=== PATIENT | male | born 1960 | race Caucasian/White ===

== ENCOUNTER 2023-12-29 20:01 | Emergency (ER) | payer MEDICARE, SELFPAY ==
[2023-12-29 20:16] VITALS: BP 152/90; PULSE 88; RESP 16; TEMP 36.6; O2SAT 98; BMI 28.7
--- NOTE | 2023-12-29 20:25 | ED.GENADULT ---
HPI - General Adult General Chief complaint: Unspecified Complaint, Adult Stated complaint: Pain in chest from food Time Seen by Provider: 12/29/23 20:19 History of Present Illness HPI narrative: This 63-year-old male comes in reporting some steak or meat that he ate that is now stuck in his lower esophagus. He has had symptoms like this in the past and at 1 point he did receive treatment in another ER facility and was able to push the food bolus through. He does have an appointment with [place] [facility] in a week or so. Tonight he ate some meat and now is unable to swallow. Related Data Home Medications ?Medication ?Instructions ?Recorded ?Confirmed lovastatin .ROUTE 12/29/23 Allergies Allergy/AdvReac Type Severity Reaction Status Date / Time No Known Drug Allergies Allergy Verified 12/29/23 20:18 Review of Systems Status of ROS: Reports: 10 or more systems reviewed and unremarkable except as noted in History and below Narrative: Constitutional: No fevers, no weight gain or loss. Eyes: No discharge. No vision changes. HENT: No congestion, no sore throat, no ear pain. Cardiovascular: No chest pain, no palpitations. Respiratory: No shortness of breath, no wheezes, no cough. Gastrointestinal: No abdominal pain, no vomiting, no diarrhea. Genitourinary: No dysuria, no hematuria. Musculoskeletal: Normal range of motion. Skin: No rashes, no pruritis. Neurological: No dizziness, weakness, sensory change, speech change. Endo/Heme/Allergies: No bruising or bleeding. No polydipsia. Pysch: no suicidality, no anxiety, no insomnia. All other systems reviewed and are negative. PFSH PFS Social History Smoking Status: Never smoker How often do you have a drink containing alcohol: never AUDIT-C Alcohol total score: 0 Non-prescribed substance use: denies use Exam Narrative: Exam Narrative: Constitutional: Well-developed, well-nourished, no acute distress. HEENT: Normocephalic, atraumatic. Neck: Normal range of motion. Nontender. Supple. Heart: Intact distal pulses. Lungs: No chest discomfort. No wheezes, rhonchi, or rales. Abdomen: Nontender. Back: Normal range of motion. Extremities: Normal range of motion. No injury. Skin: Intact. No rash. Warm. No erythema or pallor. Neurologic: No altered sensation. No weakness. Alert and oriented. Psychiatric: No suicidality. No anxiety or depression. No insomnia. Nursing notes and vitals signs are reviewed. Const: Vital Signs, click to edit/add: Vital Signs - 24 hr 12/29/23 20:16 12/29/23 20:26 12/29/23 20:31 Temperature 97.8 F Pulse Rate [Pulse Oximeter] 88 81 76 Respiratory Rate 16 16 16 Blood Pressure [Ri ght Upper Arm] 152/90 H 155/86 H 148/96 H Pulse Oximetry 98 97 97 Oxygen Delivery Me thod Room Air Room Air Room Air Course Vital Signs Vital signs: Initial Vital Signs Temperature 97.8 F 12/29/23 20:16 Temperature Source Temporal Artery Scan 12/29/23 20:16 Pulse Rate 88 12/29/23 20:16 Respiratory Rate 16 12/29/23 20:16 Blood Pressure 152/90 H 12/29/23 20:16 Blood Pressure Mean 110 H 12/29/23 20:16 Blood Pressure Position Sitting 12/29/23 20:16 Pulse Oximetry 98 12/29/23 20:16 Oxygen Delivery Method Room Air 12/29/23 20:16 Vital Signs Temperature 97.8 F 12/29/23 20:16 Pulse Rate 88 12/29/23 20:16 Respiratory Rate 16 12/29/23 20:16 Blood Pressure 152/90 H 12/29/23 20:16 Pulse Oximetry 98 12/29/23 20:16 Oxygen Delivery Method Room Air 12/29/23 20:16 Temperature 97.8 F 12/29/23 20:16 Pulse Rate 76 12/29/23 20:31 Respiratory Rate 16 12/29/23 20:31 Blood Pressure 148/96 H 12/29/23 20:31 Pulse Oximetry 97 12/29/23 20:31 Oxygen Delivery Method Room Air 12/29/23 20:31 Medications Administered Medications: Discontinued Medications Generic Name Dose Route Start Last Admin Trade Name Freq PRN Reason Stop Dose Admin Nitroglycerin 0.4 mg 12/29/23 20:24 12/29/23 20:27 Nitroglycerin 0.4 Mg Tab.Subl SUBLINGUAL 12/29/23 20:25 0.4 mg ONCE ONE Administration Simethicone/Sodium Bicarb/Citric Ac 1 each 12/29/23 20:24 12/29/23 20:33 Simethicone/Sod Bicarb/Cit Ac 1 Each Gran.Ef.Pk PO 12/29/23 20:25 1 each ONCE ONE Administration Medical Decision Making MDM Narrative Medical decision making narrative: This patient comes in with food bolus in his esophagus. It seems that he is able to take a small amount of water but continues to have hiccups and feels that there is food in his lower esophagus. He did receive a sublingual dose of nitroglycerin and EZ gas granules. Soon after these were administered the patient was able to push the food through and is now feeling back to normal and able to swallow normally. He does have a follow-up appointment this next month with [place] [facility]. I advised him to take extra care when swallowing especially when ingesting meat. Discharge Plan Discharge Clinical Impression: Food impaction of esophagus Patient Disposition: Home, Self-Care Condition: Improved Additional Instructions: Continue current plans. I recommend using [id number] proton pump inhibitor such as Prilosec, Prevacid, or Nexium also as directed. Return if symptoms are recurrent. Prescriptions: No Action lovastatin .ROUTE Stand Alone Forms: [employer] Info Instructions
[2023-12-29 20:26] VITALS: BP 155/86; PULSE 81; RESP 16; O2SAT 97
[2023-12-29] MEDS: NITROGLYCERIN 0.4 MG TAB.SUBL SUBLINGUAL (20:27)
[2023-12-29 20:31] VITALS: BP 148/96; PULSE 76; RESP 16; O2SAT 97
[2023-12-29] MEDS: SIMETHICONE/SOD BICARB/CIT AC 1 EACH GRAN.EF.PK PO (20:33)
[2023-12-29 21:14] VITALS: BP 139/71; PULSE 69; RESP 18; O2SAT 94
== END 2023-12-29 21:15 | disposition home or self-care (01) ==
LOC: ED 21:11
PROVIDERS: Emergency Provider Emergency Medicine Emergency Medical Services
DX: T18.128A Food in esophagus causing other injury, initial encounter (principal)
CPT/HCPCS: 99283; 99284; A9270